=== PATIENT | female | born 1995 | race Caucasian/White ===

== ENCOUNTER 2023-04-16 05:56 | Inpatient (IN) | payer BC, OTHER ==
[2023-04-15 12:00] LABS: Hemoglobin 11.4 g/dL (12.0-15.5); Platelet Count 193 10x3/uL (150-450)
[2023-04-15 12:34] LABS: Syphilis Antibody Nonreactive (Nonreactive); Syphilis Antibody Index 0.04 S/CO (<1.00 Non-Reactive)
[2023-04-15 12:35] LABS: Hep B Surf Ag Non-Reactive S/CO (NonReactive)
[2023-04-16] MEDS ORDERED: hydrALAZINE 20 MG/ML VIAL SLOW IVP PRN ×2 (06:11→11:24)
[2023-04-16] MEDS ORDERED: Bicitra 30 ML UDCUP PO PRN (06:11)
[2023-04-16] MEDS ORDERED: Famotidine/PF 20 mg/2ml Vial SLOW IVP PRN (06:11)
[2023-04-16] MEDS ORDERED: CEFAZOLIN 2 GM in Sodium Chloride 0.9% 100 ML IVPB SCH (06:11)
[2023-04-16] MEDS ORDERED: NS w/ Oxytocin 30 units 500 ML IV SCH (06:11)
[2023-04-16] MEDS ORDERED: Promethazine HCl 25 MG/ML VIAL IM PRN ×2 (06:11→07:05)
[2023-04-16] MEDS ORDERED: Ondansetron PF 4 MG/2 ML Vial IVP PRN ×3 (06:11→11:24)
[2023-04-16 06:13] VITALS: BMI 26.4
[2023-04-16] MEDS ORDERED: Morphine PF 10 MG/10 ML VIAL ONE (06:51)
[2023-04-16] MEDS ORDERED: ePHEDrine Sulfate 50 MG/10 ML VIAL ONE (06:51)
[2023-04-16] MEDS ORDERED: PHENYLEPHRINE-NS 100 MCG/ML 10 ML SYRINGE ONE (06:52)
[2023-04-16] MEDS ORDERED: Phenylephrine 40 MG/NS 250 ML 250 ML ONE (06:52)
[2023-04-16] MEDS ORDERED: Dexamethasone 4 mg/ml Vial ONE (06:52)
[2023-04-16] MEDS ORDERED: Oxytocin 10 UNITS/ML VIAL ONE (06:52)
[2023-04-16] MEDS ORDERED: Glycopyrrolate 0.2 MG/ML 5 ML SYRINGE ONE (06:52)
[2023-04-16] MEDS ORDERED: Ketorolac Tromethamine 30 MG/ML VIAL ONE (06:52)
[2023-04-16] MEDS ORDERED: Ondansetron PF 4 MG/2 ML Vial ONE (06:52)
[2023-04-16] MEDS ORDERED: Fentanyl 100 MCG/2 ML VIAL SLOW IVP PRN (07:05)
[2023-04-16] MEDS ORDERED: Naloxone HCl 0.4 mg/ml Vial IVP PRN ×2 (07:05)
[2023-04-16] MEDS ORDERED: diphenhydrAMINE 50 MG/ML VIAL IVP PRN (07:05)
[2023-04-16] MEDS ORDERED: Meperidine HCl/PF 25 MG/ML VIAL SLOW IVP PRN (07:05)
[2023-04-16] MEDS ORDERED: Ondansetron HCl/PF 4 MG/2 ML Vial IVP PRN (07:05)
[2023-04-16] MEDS ORDERED: Promethazine HCl 25 MG SUPP PR PRN (07:05)
[2023-04-16] MEDS ORDERED: Ketorolac Tromethamine 30 MG/ML VIAL IVP PRN (07:05)
[2023-04-16] MEDS ORDERED: Naloxone HCl 0.4 mg/ml Vial IV PRN (07:05)
[2023-04-16] MEDS ORDERED: Moisturizing Cream (Eucerin) 113 GM JAR TOP PRN (07:05)
[2023-04-16] MEDS ORDERED: Communication Order-Pharmacy FS SCH (07:15)
[2023-04-16] MEDS ORDERED: Ketorolac Tromethamine 30 MG/ML VIAL IVP SCH (07:15)
[2023-04-16] MEDS ORDERED: Bisacodyl 10 MG SUPP PR PRN (11:24)
[2023-04-16] MEDS ORDERED: HYDROcodone/Acetaminophen 5/325 mg Tablet PO PRN (11:24)
[2023-04-16] MEDS ORDERED: diphenhydrAMINE 25 MG CAP PO PRN (11:24)
[2023-04-16] MEDS ORDERED: Lanolin Ointment 7 GM TUBE TOP PRN (11:24)
[2023-04-16] MEDS ORDERED: Boostrix 0.5 ML (Tdap) VIAL (>/=7 yrs of age) IM ONE (11:24)
[2023-04-16] MEDS ORDERED: Prenatal Vitamin 1 TAB PO SCH (11:30)
[2023-04-16] MEDS ORDERED: Docusate 100 MG CAP PO SCH (11:30)
[2023-04-16] MEDS ORDERED: Ferrous Sulfate 325 MG TAB PO SCH (11:30)
[2023-04-16] MEDS ORDERED: Ibuprofen 800 MG TAB PO SCH (14:00)
[2023-04-16] MEDS: Ketorolac Tromethamine 30 MG/ML VIAL IVP PRN ×2 (14:22→20:36)
[2023-04-16] MEDS: Docusate 100 MG CAP PO SCH (20:39)
[2023-04-17] MEDS: Ketorolac Tromethamine 30 MG/ML VIAL IVP PRN (04:47)
[2023-04-17] MEDS: Ferrous Sulfate 325 MG TAB PO SCH ×3 (04:54→20:50)
[2023-04-17 05:47] LABS: Hemoglobin 9.8 g/dL (12.0-15.5); Mean Corpuscular Hemoglobin 27.8 pg (27.0-33.0); Mean Corpuscular Volume 86.9 fl (81.6-98.3); Mean Platelet Volume 11.8 fl (7.4-10.4); Platelet Count 163 10x3/uL (150-450); RBC Distribution Width 15.9 % (11.5-14.5); Red Blood Cell (RBC) Count 3.52 10x6/uL (3.90-5.03); White Blood Cell (WBC) Count 11.5 10x3/uL (3.5-10.5)
[2023-04-17] MEDS: Docusate 100 MG CAP PO SCH ×2 (08:08→20:50)
[2023-04-17] MEDS: HYDROcodone/Acetaminophen 5/325 mg Tablet PO PRN ×4 (08:09→20:50)
[2023-04-17] MEDS: Prenatal Vitamin 1 TAB PO SCH (08:09)
[2023-04-17] MEDS: Simethicone Chewable 80 MG TAB PO PRN ×2 (14:51→20:55)
[2023-04-17] MEDS: Ibuprofen 800 MG TAB PO SCH ×2 (14:51→21:49)
[2023-04-18] MEDS: HYDROcodone/Acetaminophen 5/325 mg Tablet PO PRN ×2 (05:44→10:58)
[2023-04-18] MEDS: Simethicone Chewable 80 MG TAB PO PRN (05:44)
[2023-04-18] MEDS: Ibuprofen 800 MG TAB PO SCH (05:44)
[2023-04-18] MEDS: Prenatal Vitamin 1 TAB PO SCH (08:10)
[2023-04-18] MEDS: Docusate 100 MG CAP PO SCH (08:10)
[2023-04-18] MEDS: Ferrous Sulfate 325 MG TAB PO SCH (08:11)
[2023-04-18 09:02] VITALS: BP 125/79; TEMP 97.7
== END 2023-04-18 12:10 | disposition home or self-care (01) | DRG 788 ==
LOC: CSHLD 05:56 → CSHPP 11:05
PROVIDERS: ADMIT Obstetrics & Gynecology; ATTEND Obstetrics & Gynecology
PROC: 10D00Z1 Extraction of Products of Conception, Low, Open Approach (ICD-10-PCS; principal; 2023-04-16)
DX: O34.211 Maternal care for low transverse scar from previous cesarean delivery (principal); Z3A.37 37 weeks gestation of pregnancy; Z37.0 Single live birth; O13.4 Gestational [pregnancy-induced] hypertension without significant proteinuria, complicating childbirth; N73.6 Female pelvic peritoneal adhesions (postinfective); O99.892 Other specified diseases and conditions complicating childbirth
CPT/HCPCS: 36415; 51702; 85014; 85018; 85027; 85049; 86780; 86850; 86900; 86901; 87340; J1100; J1885; J2274; J2405; J2590